=== PATIENT | male | born 1995 | race African-American/Black ===

== ENCOUNTER 2019-08-02 00:56 | Emergency (ER) | payer SELFPAY ==
[~2019-08-02] VITALS: Ht 177.8 cm; Wt 84.8 kg
[2019-08-02 03:36] VITALS: BP 125/80
[2019-08-02] MEDS ORDERED: HYDROcodone-ACET 10/325MG TAB PO ONE (04:15)
[2019-08-02] MEDS ORDERED: IBUPROFEN 800 MG TAB PO ONE (04:15)
== END 2019-08-02 04:24 | disposition home or self-care (01) ==
LOC: ER 00:56
DX: S92.415A Nondisplaced fracture of proximal phalanx of left great toe, initial encounter for closed fracture (principal); W21.01XA Struck by football, initial encounter; Y93.61 Activity, american tackle football; Y92.89 Other specified places as the place of occurrence of the external cause; Y99.8 Other external cause status
CPT/HCPCS: 73630

== ENCOUNTER 2023-10-24 00:04 | Emergency (ER) | payer MEDICAID ==
[~2023-10-24] VITALS: Ht 180.3 cm; Wt 100.0 kg
[2023-10-24 00:20] VITALS: BP 146/85; PULSE 96; RESP 20; O2SAT 96
[2023-10-24] MEDS ORDERED: IBUP-1456 PO (02:03)
== END 2023-10-24 03:44 | disposition home or self-care (01) ==
LOC: ER 00:04
DX: S62.366A Nondisplaced fracture of neck of fifth metacarpal bone, right hand, initial encounter for closed fracture (principal); W26.8XXA Contact with other sharp object(s), not elsewhere classified, initial encounter; Y93.89 Activity, other specified; Y92.89 Other specified places as the place of occurrence of the external cause; Y99.8 Other external cause status
CPT/HCPCS: 29125; 73130

== ENCOUNTER 2024-06-15 07:36 | Inpatient (IN) | payer SELFPAY ==
[~2024-06-15] VITALS: Ht 180.3 cm; Wt 109.3 kg
[~2024-06-15 07:36] MED LIST: IBUP-1456 PO
[2024-06-15 07:56] VITALS: PULSE 91; RESP 16; O2SAT 97
[2024-06-15] MEDS: ONDANSETRON HCL 4 MG/2 ML VIAL IV ONE (08:03)
[2024-06-15] MEDS: HYDROmorphone HCL 2 MG/ML VL/or syr IV ONE (08:04)
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
[2024-06-15 08:16] LABS: Basophils # (auto) 0 10 ^3/uL (0-0.2); Eosinophils # (auto) 0 10 ^3/uL (0-0.8); Hemoglobin 13.4 g/dL (13.5-17.5); Lymphocytes # (auto) 1.3 10 ^3/uL (0.4-5.4); Red Cell Distribution Width 15.3 % (11.8-14.3)
[2024-06-15 08:18] LABS: Basophils % (auto) 0.2 % (0.0-2.0); Hematocrit 42.5 % (41.0-53.0); Lymphocytes % (auto) 8.4 % (10.0-50.0); Mean Corpuscular Hemoglobin 22.3 pg (28.0-32.0); Mean Corpuscular Hgb Conc. 31.5 g/dL (32.0-36.0); Mean Corpuscular Volume 70.7 fL (80.0-100.0); Monocytes # (auto) 1.1 10 ^3/uL (0-1.3); Monocytes % (auto) 7.1 % (0.0-12.0); Neutrophils % (auto) 84.3 % (37.0-80.0); Platelet Count (auto) 275 10^3/uL (140-450); White Blood Cell 15.4 10^3/uL (4.4-10.8)
[2024-06-15] MEDS: IOHEXOL 300 MG/ML 100ML BOTTLE IJ ONE (08:26)
[2024-06-15 08:32] LABS: INR 1.05 (0.9-1.15); Partial Thromboplastin Time 24.9 SEC (24.5-34.5); Prothrombin Time 11.1 sec (9.3-11.8)
[2024-06-15 08:48] LABS: Alanine Aminotransferase 50 U/L (7-40); Albumin 4.8 g/dL (3.2-4.8); Alkaline Phosphatase 75 U/L (46-116); Anion Gap 9 (5-15); Aspartate Aminotransferase 48 U/L (13-40); BUN/Creatinine Ratio 8.6 (10.0-20.0); Bilirubin, Total 0.3 mg/dL (0.2-1.0); Blood Urea Nitrogen 11 mg/dL (9-23); Calcium 9.7 mg/dL (8.7-10.4); Carbon Dioxide 24 mmol/L (20-31); Chloride 101 mmol/L (98-107); Glucose 127 mg/dL (74-106); Magnesium 1.9 mg/dL (1.6-2.6); Potassium 3.5 mmol/L (3.5-5.1); Sodium 134 mmol/L (136-145); Total Protein 8.2 g/dL (5.7-8.2)
[2024-06-15] MEDS: SODIUM CHLORIDE 0.9% 500 ML IVB ONE (09:05)
[2024-06-15] MEDS: SODIUM CHLORIDE 0.9% 1,000 ML IV ONE ×2 (09:05→09:10)
[2024-06-15] MEDS: METOCLOPRAMIDE HCL 5MG/ml INJ 2ml VIAL IV ONE (09:09)
[2024-06-15] MEDS: KETOROLAC TROMETH 30 MG/ML 1ML VIAL IV ONE (09:10)
[2024-06-15 09:17] LABS: Lipase 26 U/L (12-53)
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
[2024-06-15 12:18] LABS: Urine Bacteria None Seen /hpf (None Seen)
[2024-06-15 12:34] LABS: Urine Blood 1+ /uL (Negative); Urine Clarity Clear (Clear); Urine Color Light-Yellow (Yellow); Urine Protein, UAD Negative (Negative); Urine Specific Gravity 1.038 (1.001-1.035); Urine Urobilinogen Normal (Negative); Urine WBC 1 /hpf (0 - 3)
[2024-06-15 13:12] LABS: Amphetamine Screen, Urine Neg (NEGATIVE)
[2024-06-15 13:13] LABS: Barbiturate Scree,Urine Neg (NEGATIVE); Benzodiazephine Screen, Urine Neg (NEGATIVE); Cocaine Screen, Urine Neg (NEGATIVE); Opiate Scree,Urine Neg (NEGATIVE)
[2024-06-15 13:14] LABS: Cannabinoid Screen, Urine Neg (NEGATIVE); Phencyclidine Screen, Urine Neg (NEGATIVE)
[2024-06-15] MEDS ORDERED: ACETAMINOPHEN 325 MG TAB PO PRN (14:00)
[2024-06-15] MEDS ORDERED: ONDANSETRON HCL 4 MG/2 ML VIAL IV PRN (14:00)
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
[2024-06-15] MEDS: SODIUM CHLOR 0.9% PF (SALINE LOCK) 10ML VIAL/SYR IV SCH (14:22)
[2024-06-15] MEDS: MORPHINE SULFATE INJ 2 MG/ml SYRG IV PRN (15:23)
[2024-06-15 15:30] VITALS: PULSE 64; RESP 16; O2SAT 100
[2024-06-15 16:07] VITALS: BP 121/74; PULSE 64; RESP 16; TEMP 98.6; O2SAT 100
[2024-06-15 17:00] VITALS: BP 129/65; PULSE 62; RESP 14; TEMP 97.8; O2SAT 96
--- NOTE | 2024-06-15 17:53 | ECG ---
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
[2024-06-15 21:00] VITALS: BP 125/63; PULSE 85; RESP 18; TEMP 98.4; O2SAT 100
[2024-06-15] MEDS: HYDROcodone-ACET 5/325MG TAB PO PRN (23:25)
[2024-06-16 01:00] VITALS: BP 120/63; PULSE 84; RESP 19; TEMP 98.5; O2SAT 96
[2024-06-16 05:00] VITALS: BP 130/62; PULSE 84; RESP 19; TEMP 98.8; O2SAT 95
[2024-06-16] MEDS: MORPHINE SULFATE INJ 2 MG/ml SYRG IV PRN (05:35)
[2024-06-16 07:54] LABS: Basophils # (auto) 0 10 ^3/uL (0-0.2); Eosinophils # (auto) 0 10 ^3/uL (0-0.8); Monocytes # (auto) 0.5 10 ^3/uL (0-1.3); Red Cell Distribution Width 15.1 % (11.8-14.3)
[2024-06-16 07:57] LABS: Basophils % (auto) 0.4 % (0.0-2.0); Eosinophils % (auto) 0.7 % (0.0-7.0); Hematocrit 33.6 % (41.0-53.0); Hemoglobin 10.9 g/dL (13.5-17.5); Lymphocytes # (auto) 1.4 10 ^3/uL (0.4-5.4); Lymphocytes % (auto) 21.5 % (10.0-50.0); Mean Corpuscular Hgb Conc. 32.4 g/dL (32.0-36.0); Mean Corpuscular Volume 71.1 fL (80.0-100.0); Neutrophils # (auto) 4.7 10 ^3/uL (1.6-8.6); Neutrophils % (auto) 69.4 % (37.0-80.0); Nucleated Red Blood Cells % 0.1 %; Platelet Count (auto) 188 10^3/uL (140-450); Red Blood Cells 4.73 10^6/uL (4.5-5.90); White Blood Cell 6.7 10^3/uL (4.4-10.8)
[2024-06-16 08:06] LABS: Alanine Aminotransferase 41 U/L (7-40); Albumin 3.7 g/dL (3.2-4.8); Alkaline Phosphatase 57 U/L (46-116); Anion Gap 4 (5-15); Aspartate Aminotransferase 71 U/L (13-40); Bilirubin, Total 0.9 mg/dL (0.2-1.0); Blood Urea Nitrogen 8 mg/dL (9-23); Calcium 9.1 mg/dL (8.7-10.4); Carbon Dioxide 27 mmol/L (20-31); Chloride 105 mmol/L (98-107); Glucose 108 mg/dL (74-106); Sodium 136 mmol/L (136-145); Total Protein 6.4 g/dL (5.7-8.2)
[2024-06-16 08:40] VITALS: BP 127/55; PULSE 76; RESP 18; TEMP 98.9; O2SAT 99
[2024-06-16 13:00] VITALS: BP 123/55; PULSE 76; RESP 19; TEMP 98.9; O2SAT 96
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
[2024-06-16 17:02] VITALS: BP 109/47; PULSE 90; RESP 18; TEMP 99.3; O2SAT 96
[2024-06-16] MEDS: FAMOTIDINE 20 MG TAB PO SCH (22:02)
[2024-06-17 05:00] VITALS: BP 130/76; PULSE 87; RESP 18; TEMP 97.9; O2SAT 99
--- NOTE | 2024-06-17 07:26 | DVHPN2 ---
Date of Progress Note Date of Progress Note Date of Progress Note: 06/17/24 Date of Admission Date of Admission Date of Admission: Date of Admission: Jun 15, 2024 at 13:47 Overnight Events Overnight events Overnight Events Pt NPO, leann pain on po meds Past Medical History Past Medical History Past Medical History non contributory Past Surgical History Past Surgical History Past Surgical History non contributory Family History Family History Family History: Patient reports no known family medical history. Allergies: Uncoded Allergies: PENICILLIN (Allergy, Unknown, 08/06/15) Home Meds Active Scripts Ibuprofen (Ibuprofen) 800 Mg Tab, 1 TAB PO TID PRN, #30 TAB 0 Refills Prov:ABBE RODRIGUEZ 10/24/23 Current Medications Current Medications Medications (Trade) Dose Ordered Sig/Yadira Route PRN Reason Start Time Stop Time Status Last Admin Enoxaparin Sodium (Lovenox) 40 mg DAILY SC 06/16/24 17:00 Famotidine (Pepcid Tablet) 20 mg Q12HR PO 06/16/24 22:00 06/16/24 22:02 Physical Examination General Examination: Last Vital sign Vital Signs Date Time Temp Pulse Resp B/P (MAP) Pulse Ox O2 Delivery O2 Flow Rate FiO2 06/17/24 05:00 97.9 87 18 130/76 (94) 99 97.9 06/16/24 20:00 Room Air* 0 21 General: General: No apparent distress, appears comfortable. Cooperative. HEENT: NCAT Extremities: Right thigh, moderate swelling, NVI right LE, skin intact, nl pulses distally Skin: intact Neurological Examination: Neurological Examination: Mental Status: Cranial Nerves: Motor Examination: Reflexes: Sensory: Coordination: Gait: NVI Labs: Labs: Laboratory Tests Test 06/15/24 07:40 06/15/24 11:32 06/16/24 07:12 Range/Units White Blood Count 15.4 H 6.7 # 4.4-10.8 10^3/uL Red Blood Count 6.00 H 4.73 4.5-5.90 10^6/uL Hemoglobin 13.4 L 10.9 #L 13.5-17.5 g/dL Hematocrit 42.5 33.6 #L 41.0-53.0 % Mean Corpuscular Volume 70.7 L 71.1 L 80.0-100.0 fL Mean Corpuscular Hemoglobin 22.3 L 23.0 L 28.0-32.0 pg Mean Corpuscular Hemoglobin Concent 31.5 L 32.4 32.0-36.0 g/dL Red Cell Distribution Width 15.3 H 15.1 H 11.8-14.3 % Platelet Count 275 188 140-450 10^3/uL Mean Platelet Volume 7.8 7.7 6.9-10.8 fL Neutrophils (%) (Auto) 84.3 H 69.4 37.0-80.0 % Lymphocytes (%) (Auto) 8.4 L 21.5 10.0-50.0 % Monocytes (%) (Auto) 7.1 8.0 0.0-12.0 % Eosinophils (%) (Auto) 0.0 0.7 0.0-7.0 % Basophils (%) (Auto) 0.2 0.4 0.0-2.0 % Neutrophils # (Auto) 13.0 H 4.7 1.6-8.6 10 ^3/uL Lymphocytes # (Auto) 1.3 1.4 0.4-5.4 10 ^3/uL Monocytes # (Auto) 1.1 0.5 0-1.3 10 ^3/uL Eosinophils # (Auto) 0 0 0-0.8 10 ^3/uL Basophils # (Auto) 0 0 0-0.2 10 ^3/uL Nucleated Red Blood Cells 0.0 0.1 % Prothrombin Time 11.1 9.3-11.8 sec Prothrombin Time INR 1.05 0.9-1.15 Activated Partial Thromboplast Time 24.9 24.5-34.5 SEC Sodium Level 134 L 136 136-145 mmol/L Potassium Level 3.5 4.0 3.5-5.1 mmol/L Chloride Level 101 105 98-107 mmol/L Carbon Dioxide Level 24 27 20-31 mmol/L Anion Gap 9 4 L 5-15 Blood Urea Nitrogen 11 8 L 9-23 mg/dL Creatinine 1.28 1.14 0.700-1.30 mg/dL Glomerular Filtration Rate Calc 78 90 >90 mL/min BUN/Creatinine Ratio 8.6 L 7.0 L 10.0-20.0 Serum Glucose 127 H 108 H 74-106 mg/dL Calcium Level 9.7 9.1 8.7-10.4 mg/dL Magnesium Level 1.9 1.6-2.6 mg/dL Total Bilirubin 0.3 0.9 0.2-1.0 mg/dL Aspartate Amino Transferase (AST) 48 H 71 H 13-40 U/L Alanine Aminotransferase (ALT) 50 H 41 H 7-40 U/L Alkaline Phosphatase 75 57 46-116 U/L Total Protein 8.2 6.4 5.7-8.2 g/dL Albumin 4.8 3.7 3.2-4.8 g/dL Lipase 26 12-53 U/L Plasma/Serum Blood Alcohol 17.3 H <10 mg/dL Urine Color Light-yellow Yellow Urine Clarity Clear Clear Urine pH 6.0 5.0-9.0 Urine Specific [place] 1.038 H 1.001-1.035 Urine Protein Negative Negative Urine Ketones Negative Negative Urine Blood 1+ H Negative /uL Urine Nitrite Negative Negative Urine Bilirubin Negative Negative Urine Urobilinogen Normal Negative mg/dL Urine Leukocyte Esterase Negative Negative /uL Urine RBC 5 0 - 3 /hpf Urine WBC 1 0 - 3 /hpf Urine Squamous Epithelial Cells None seen <5 /hpf Urine Bacteria None seen None Seen /hpf Urine Glucose Normal Normal mg/dL Urine Opiates Screen Neg NEGATIVE Urine Fentanyl Screen Neg NEGATIVE Urine Barbiturates Screen Neg NEGATIVE Urine Phencyclidine Screen Neg NEGATIVE Urine Amphetamines Screen Neg NEGATIVE Urine Benzodiazepines Screen Neg NEGATIVE Urine Cocaine Screen Neg NEGATIVE Urine Cannabinoids Screen Neg NEGATIVE Imaging Imagin06/14/24 right femoral shaft fracture, displaced, comminuted Assessment/Plan Assessment/Plan Assessment and Plan:Luis Peterson is a 29 year old male who presents with RIGHT femoral shaft fracture, comminuted, dipslaced 1) preop clearance 2) NPO 3) consent for ORIF right femur fracture Plan discussed with: Patient NATIVIDAD PHAM MD Jun 17, 2024 07:26
[2024-06-17] MEDS ORDERED: ceFAZolin 2 GM/D5W100ml 100 ML IV ONE (07:28)
[2024-06-17] MEDS ORDERED: SUCCINYLCHOLINE CHLORIDE 20 MG/ML 10ML VIAL IV ONE (07:51)
[2024-06-17] MEDS ORDERED: LIDOCAINE 2% JELLY 11ml (GLYDO) ONE (07:51)
[2024-06-17] MEDS ORDERED: fentaNYL CITRATE 100 MCG/2 ML VL ONE ×2 (07:54→08:26)
[2024-06-17] MEDS ORDERED: HYDROmorphone HCL 2 MG/ML VL/or syr ONE (07:54)
[2024-06-17] MEDS ORDERED: MIDAZOLAM HCL 2MG/2ML 2ml VIAL (1mg/ml) ONE (07:55)
[2024-06-17] MEDS ORDERED: DexAMETHasone SOD PHOS 10MG/1ML VIAL INJ ONE (08:26)
[2024-06-17] MEDS ORDERED: ROCURONIUM 10MG/ML 10ML VIAL IV ONE (08:26)
[2024-06-17] MEDS ORDERED: PROPOFOL 10 MG/ML 20 ML IV ONE (08:26)
[2024-06-17] MEDS ORDERED: LIDOCAINE W/ EPINEPHRINE 1% 20ML VIAL ONE (08:34)
[2024-06-17] MEDS ORDERED: SUGAMMADEX 200mg/2ml Vial (100MG/ML) IV ONE (09:21)
[2024-06-17] MEDS ORDERED: BUPIVACAINE W/ EPINEPH 0.5% INJ 50ML MDV IJ ONE (09:24)
[2024-06-17] MEDS ORDERED: KETOROLAC TROMETH 30 MG/ML 1ML VIAL IV ONE (09:30)
[2024-06-17] MEDS ORDERED: MIDAZOLAM HCL 2MG/2ML 2ml VIAL (1mg/ml) IV PRN (09:30)
[2024-06-17] MEDS ORDERED: ONDANSETRON HCL 4 MG/2 ML VIAL IV ONE (09:30)
[2024-06-17] MEDS ORDERED: hydrALAZINE HCL 20 MG/ML VL IV PRN (09:30)
[2024-06-17] MEDS ORDERED: ePHEDrine SULFATE 50 MG/ML AMP IV PRN (09:30)
[2024-06-17] MEDS ORDERED: MORPHINE SULFATE 4 MG/ML SYR/VIAL IV PRN (09:30)
--- NOTE | 2024-06-17 09:42 | DVHOP2 ---
Operative Report - 2 Report Details Date: 06/17/24 Preop Diagnosis: Right midshaft comminuted femur fracture Postop Diagnosis: same Surgeon: Richardson Pham MD Rehab Technician: none Anesthesiologist: Dr Jones Anesthesia: General Drains: none Implant: Arthrex antegrade IM femoral tonya with two proximal interlockinng screws and one static distal interlocking screw Consent: The patient was informed of the risks and benefits of the procedure. These include but are not limited to complications of anesthesia, postoperative infection, incomplete relief of symptoms, recurrence of symptoms, damage to blood vessels, nerves and tendons, deep venous thrombosis, pulmonary embolism and possible need for repeat surgery in the future. Complications: none Estimated Blood Loss: 100cc Fluids: 1 L crystalloid Findings: above Indications for Surgery: Unstable fracture of right proximal femur with requisite bedrest without fixation and comorbidities associated with bedrest Name of Procedure Performed Open reduction internal fixation of right comminuted femur fracture with IM antegrade tonya Procedure Details Procedure Details: Patient brought in the operating room given Ancef 1 g IV piggyback preoperatively general anesthesia without complication placed on the fracture table well-padded perineal post right leg in foot and ankle padded into traction boot hold her left leg and all padded well leg camacho reduction of fracture with longitudinal traction C-arm fluoro taken to show good overall alignment of fracture with gross comminution at the fracture site the junction of mid and distal 3rd of the femur sterile prep and drape of right hip and lower extremity time-out performed confirmation right side correct side after review of operative consent history and physical my initials on right buttock longitudinal incision made 5 cm in length 8 cm proximal to tip of greater trochanter sharp dissection through skin down to the fascia sharp division of the fascia guide pin placed into the tip of greater trochanter into the intramedullary canal good position of pending confirmed in AP and lateral views Reamer used to gain access then reduction device placed down intramedullary canal and across fracture guide pin then placed through reduction device then reaming over guide pin size are up to size 11-1/2 then placement of IM tonya Arthrex 44 by 10 mm C-arm fluoro taken showing good position of tonya good good alignment of fracture proximal interlocking using a locking guides 1 intertroch screw 1 transverse screw the distal interlocking using C-arm to obtain guide for placement of distal interlock screw irrigation or C-arm fluoro taken again showing good alignment and position of hardware interlocking screws irrigation performed excellent hemostasis noted closure deep fascia 0 Vicryl simple interrupted 0 Vicryl suture subcutaneous 2-0 Vicryl suture skin jennifer 4 x 4 paper tape no drain specimens complications. Specimen: none Condition Stable Disposition Still a Patient RICHARDSON PHAM MD Jun 17, 2024 09:42
[2024-06-17 09:44] VITALS: PULSE 81; RESP 13; O2SAT 99
[2024-06-17] MEDS: D5W/SOD CHL 0.45%/KCL 20MEQ 1,000 ML IV SCH (09:45)
[2024-06-17] MEDS: ENOXAPARIN SOD 40 MG/0.4 ML SYRINGE SC SCH (10:00)
[2024-06-17] MEDS: HYDROmorphone HCL 2 MG/ML VL/or syr IV PRN (10:35)
--- NOTE | 2024-06-17 10:40 | DVH ---
C-ARM FLUOROSCOPY: PROCEDURE: ORIF right femur FLUOROSCOPY TIME: 164.3 sec
--- NOTE | 2024-06-17 10:40 | DVH ---
C-ARM FLUOROSCOPY: PROCEDURE: ORIF right femur FLUOROSCOPY TIME: 164.3 sec
[2024-06-17 10:59] VITALS: BP 132/83; PULSE 78; RESP 14; TEMP 97.8; O2SAT 90
[2024-06-17] MEDS ORDERED: PHENYLEPHRINE HCL 10 MG/ML VL IV ONE (12:10)
[2024-06-17 13:00] VITALS: BP 153/76; PULSE 91; RESP 18; TEMP 97.8; O2SAT 96
[2024-06-17] MEDS: diphenhdrAMINE HCL 50 MG/1 ML VL IV PRN (13:59)
[2024-06-17] MEDS: ceFAZolin 1GM/50ML 50 ML IV SCH (14:01)
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
[2024-06-17 17:00] VITALS: BP 155/79; PULSE 90; RESP 16; TEMP 97.6; O2SAT 97
[2024-06-17 22:00] VITALS: BP 156/78; PULSE 88; RESP 19; TEMP 98.5; O2SAT 97
[2024-06-18 01:00] VITALS: BP 147/85; PULSE 74; RESP 19; TEMP 97.7; O2SAT 95
[2024-06-18 05:00] VITALS: BP 134/72; PULSE 73; RESP 19; TEMP 98.3; O2SAT 97
[2024-06-18 06:03] LABS: Basophils # (auto) 0 10 ^3/uL (0-0.2); Eosinophils # (auto) 0 10 ^3/uL (0-0.8); Mean Corpuscular Hgb Conc. 32.3 g/dL (32.0-36.0); Mean Corpuscular Volume 70.1 fL (80.0-100.0)
[2024-06-18 06:05] LABS: Basophils % (auto) 0.1 % (0.0-2.0); Hematocrit 29.4 % (41.0-53.0); Hemoglobin 9.5 g/dL (13.5-17.5); Lymphocytes # (auto) 1.5 10 ^3/uL (0.4-5.4); Lymphocytes % (auto) 13.8 % (10.0-50.0); Mean Corpuscular Hemoglobin 22.7 pg (28.0-32.0); Monocytes % (auto) 9.1 % (0.0-12.0); Neutrophils # (auto) 8.2 10 ^3/uL (1.6-8.6); Platelet Count (auto) 212 10^3/uL (140-450); Red Blood Cells 4.19 10^6/uL (4.5-5.90); Red Cell Distribution Width 14.8 % (11.8-14.3); White Blood Cell 10.6 10^3/uL (4.4-10.8)
[2024-06-18 09:00] VITALS: BP 142/94; PULSE 85; RESP 16; TEMP 98.2; O2SAT 98
[2024-06-18 13:00] VITALS: BP 138/91; PULSE 78; RESP 18; TEMP 98.6; O2SAT 97
[2024-06-18 17:00] VITALS: BP 148/72; PULSE 72; RESP 18; TEMP 98.8; O2SAT 98
[2024-06-18 19:38] LABS: Chloride 99 mmol/L (98-107); Potassium 3.8 mmol/L (3.5-5.1); Sodium 136 mmol/L (136-145)
[2024-06-18 19:39] LABS: Anion Gap 8 (5-15); Carbon Dioxide 29 mmol/L (20-31)
[2024-06-18 19:40] LABS: Calcium 9.3 mg/dL (8.7-10.4)
[2024-06-18 19:44] LABS: Glucose 148 mg/dL (74-106)
[2024-06-18 19:45] LABS: BUN/Creatinine Ratio 7.1 (10.0-20.0); Blood Urea Nitrogen 8 mg/dL (9-23); Magnesium 1.9 mg/dL (1.6-2.6)
[2024-06-18 22:00] VITALS: BP 148/66; PULSE 94; RESP 17; TEMP 98.3; O2SAT 98
[2024-06-18] MEDS: KETOROLAC TROMETH 30 MG/ML 1ML VIAL IV ONE (23:19)
[2024-06-19 05:00] VITALS: BP 123/61; PULSE 77; RESP 17; TEMP 98.2; O2SAT 98
[2024-06-19 08:59] VITALS: BP 128/66; PULSE 83; RESP 16; TEMP 98.4; O2SAT 100
[2024-06-19] MEDS: OXYCODONE W/ ACETAMINOPHEN 5/325MG TABLET PO PRN (12:50)
[2024-06-19 13:24] VITALS: BP 149/71; PULSE 98; RESP 18; TEMP 98.4; O2SAT 100
--- NOTE | 2024-06-19 13:33 | DVHPN2 ---
Progress Note - Dictate Date Seen: Jun 19, 2024 Medical Necessity Reason Pt with a Central, PICC or Fol: No Subjective Patient was lying comfortably in bed during my evaluation reports some postoperative hip pain as well as muscle spasms that are limiting his ambulation and was currently unable to move his leg due to muscle spasms. Patient reports that he had just gotten up and walked with physical therapy only took a couple of steps down the [place] and back to his room which he believes is what is causing his current muscle spasms. Patient is otherwise feeling well denying any other complaint or concern during my evaluation. vital signs Vital Sign Date Time Temp Pulse Resp B/P (MAP) Pulse Ox O2 Delivery O2 Flow Rate FiO2 06/19/24 13:24 98.4 98 18 149/71 (97) 100 98.4 06/19/24 08:00 Room Air* 0 21 Total Intake and Output 06/18/24 06/18/24 06/19/24 15:00 23:00 07:00 Intake Total 1000 ml 450 ml Output Total 400 ml 700 ml Balance 600 ml -250 ml medications Current Medications Medications Dose Ordered Sig/Yadira Route Start Time Stop Time Status Last Admin Dose Admin Sodium Chloride 10 ml Q8HR IV 06/15/24 14:00 06/18/24 23:05 10 ML Acetaminophen/ Hydrocodone Bitart 1 tab Q4HP PRN PO 06/15/24 14:00 06/19/24 08:59 1 TAB Ondansetron HCl 4 mg Q4HP PRN IV 06/15/24 14:00 Docusate Sodium 100 mg BIDPRN PRN PO 06/15/24 14:00 Acetaminophen 650 mg Q6HP PRN PO 06/15/24 14:00 Enoxaparin Sodium 40 mg DAILY SC 06/16/24 17:00 06/19/24 08:59 40 MG Famotidine 20 mg Q12HR PO 06/16/24 22:00 06/19/24 08:59 20 MG Potassium Chloride/Dextrose/ Sod Cl 1,000 ml @ 150 mls/hr Q6H40M IV 06/17/24 09:45 06/19/24 08:58 150 MLS/HR Diphenhydramine HCl 25 mg Q6HP PRN IV 06/17/24 13:15 06/19/24 12:54 25 MG Oxycodone/ Acetaminophen 1 tab Q4HP PRN PO 06/19/24 11:45 06/19/24 12:50 1 TAB objective A&O x4 in no acute distress Hip range of motion grossly limited with pain on movement Dressings clean, dry, and intact but were causing patient discomfort due to the MediPort tape and replaced his dressing with Aquacel dressings No distal edema or calf tenderness to palpation Neurovascularly intact with cap refill less than 2 seconds laboratory and microbiology Laboratory Tests 06/18/24 19:00 06/18/24 05:27 Test 06/18/24 19:00 Range/Units Serum Glucose 148 H 74-106 mg/dL Assessment/Plan Continue current management as well as pain control and physical therapy and we will put in orders for cyclobenzaprine muscle relaxer 3 times a day as needed for muscle spasms. Advised patient to remain partially weight-bearing for the next two weeks and to follow up with our office in 10-14 days for his 1st postoperative evaluation. Recommend patient be considered for discharge home once muscle spasms have resolved if not may consider transfer to a group home facility for further assistance with his rehabilitation during the acute postoperative phase of his recovery. He understood and agreed. Plan discussed with: Patient JORDYN MISHRA Jun 19, 2024 13:33
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
[2024-06-19] MEDS: CYCLOBENZAPRINE HCL 10 MG TAB PO SCH (15:17)
[2024-06-19 16:53] VITALS: BP 110/69; PULSE 96; RESP 17; TEMP 98.3; O2SAT 99
[2024-06-19 21:00] VITALS: BP 140/64; PULSE 84; RESP 22; TEMP 98; O2SAT 100
[2024-06-20] VITALS (7 sets, daily range): BP systolic 124–137; BP diastolic 62–82; PULSE 48–91; RESP 18–20; TEMP 97.2–98.8; O2SAT 96–100
--- NOTE | 2024-06-20 12:06 | DVH ---
Right lower extremity venous Doppler INDICATION: Lower extremity swelling. Rule out deep vein thrombosis. TECHNIQUE: Duplex venous sonography was performed with real-time and flow sensitive images submitted for evaluation. FINDINGS: Normal phasic venous flow. Veins are fully compressible. No filling defects. IMPRESSION: 1. No evidence of deep vein thrombosis.
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
--- NOTE | 2024-06-20 15:57 | DVHPN2 ---
Progress Note - Dictate Date Seen: Jun 20, 2024 Medical Necessity Reason Pt with a Central, PICC or Fol: No Subjective Patient was sitting up comfortably in the chair at bedside during my evaluation and continues to report some postoperative hip pain as well as muscle spasms that are limiting his ambulation. Patient reports that he had just gotten up and walked with physical therapy and was able to take a few steps down the [place] and back to his room. Patient is otherwise feeling well denying any other complaint or concern during my evaluation. vital signs Vital Sign Date Time Temp Pulse Resp B/P (MAP) Pulse Ox O2 Delivery O2 Flow Rate FiO2 06/20/24 11:57 98.2 48 18 128/71 (90) 96 98.2 06/20/24 08:10 Room Air* 0 21 Total Intake and Output 06/19/24 06/19/24 06/20/24 15:00 23:00 07:00 Intake Total 2300 ml Output Total 800 ml 1400 ml Balance 1500 ml -1400 ml medications Current Medications Medications Dose Ordered Sig/Yadira Route Start Time Stop Time Status Last Admin Dose Admin Sodium Chloride 10 ml Q8HR IV 06/15/24 14:00 06/20/24 12:45 10 ML Acetaminophen/ Hydrocodone Bitart 1 tab Q4HP PRN PO 06/15/24 14:00 06/20/24 11:24 1 TAB Ondansetron HCl 4 mg Q4HP PRN IV 06/15/24 14:00 Docusate Sodium 100 mg BIDPRN PRN PO 06/15/24 14:00 Acetaminophen 650 mg Q6HP PRN PO 06/15/24 14:00 Enoxaparin Sodium 40 mg DAILY SC 06/16/24 17:00 06/20/24 09:46 40 MG Famotidine 20 mg Q12HR PO 06/16/24 22:00 06/20/24 09:46 20 MG Potassium Chloride/Dextrose/ Sod Cl 1,000 ml @ 150 mls/hr Q6H40M IV 06/17/24 09:45 06/20/24 12:45 150 MLS/HR Diphenhydramine HCl 25 mg Q6HP PRN IV 06/17/24 13:15 06/20/24 03:19 25 MG Oxycodone/ Acetaminophen 1 tab Q4HP PRN PO 06/19/24 11:45 06/20/24 14:02 1 TAB Cyclobenzaprine HCl 10 mg TID PO 06/19/24 14:00 06/20/24 14:02 10 MG objective A&O x4 in no acute distress Hip range of motion grossly limited with pain on movement Dressings clean, dry, and intact No distal edema or calf tenderness to palpation Neurovascularly intact with cap refill less than 2 seconds laboratory and microbiology Laboratory Tests 06/18/24 19:00 06/18/24 05:27 Test 06/18/24 19:00 Range/Units Serum Glucose 148 H 74-106 mg/dL Assessment/Plan Continue current management as well as pain control and physical therapy. Advised patient to remain partially weight-bearing for the next two weeks and to follow up with our office in 10-14 days for his 1st postoperative evaluation. Patient may be considered for discharge home from an orthopedic standpoint. He understood and agreed. Dietary Evaluation Review Comments: Continue current plan of care Expected Outcomes/Goals: F/U in 3-5 days Plan discussed with: Patient JORDYN MISHRA Jun 20, 2024 15:57
[2024-06-20] MEDS: HYDROcodone-ACET 10/325MG TAB PO PRN (16:35)
[2024-06-21] VITALS (8 sets, daily range): BP systolic 122–146; BP diastolic 60–87; PULSE 82–109; RESP 18–20; TEMP 97.8–98.9; O2SAT 98–100
[2024-06-22] VITALS (7 sets, daily range): BP systolic 114–139; BP diastolic 54–89; PULSE 77–111; RESP 18–20; TEMP 98.1–98.5; O2SAT 94–100
[2024-06-22] MEDS: DOCUSATE SOD 100 MG CAP PO PRN (09:10)
--- NOTE | 2024-06-22 14:10 | DVHPN2 ---
Reviewed: Care Plan Eyes: No Pain, No Vision change, No Conjunctivae inflammation, No Eyelid inflammation, No Other, No Redness ENT: No Ear pain, No Ear discharge, No Nose pain, No Nose discharge, No Nose congestion, No Mouth pain, No Mouth swelling, No Throat pain, No Throat swelling, No Other Cardiovascular: No Chest Pain, No Palpitations, No Orthopnea, No Paroxysmal Noc. Dyspnea, No Edema, No Lt Headedness, No Other Respiratory: No Cough, No Dry, No Shortness of breath, No SOB with excertion, No Wheezing, No Hemoptysis, No Pleuritic Pain, No Sputum, No Other Gastrointestinal: No Nausea, No Vomiting, No Abdominal Pain, No Diarrhea, No Constipation, No Melena, No Hematochezia, No Other Genitourinary: No Dysuria, No Frequency, No Incontinence, No Hematuria, No Retention, No Other Musculoskeletal: No other, No neck pain, No shoulder pain, No arm pain, No back pain, No hand pain; leg pain (right leg); No foot pain Skin: No Rash, No Lesions, No Jaundice, No Bruising, No Other Objective Vitals Vital Signs Date Time Temp Pulse Resp B/P (MAP) Pulse Ox O2 Delivery O2 Flow Rate FiO2 06/22/24 12:32 98.1 98 18 137/89 (105) 95 98.1 06/22/24 08:13 Room Air* 0 21 Intake/Output Intake and Output 06/22/24 07:00 Intake Total 4160 ml Output Total 4600 ml Balance -440 ml Intake Oral 2460 ml IV Total 1700 ml Output Urine Total 4600 ml Medications Current Medications Medications Dose Ordered Sig/Yadira Route Start Time Stop Time Status Last Admin Dose Admin Sodium Chloride 10 ml Q8HR IV 06/15/24 14:00 06/22/24 05:04 10 ML Acetaminophen/ Hydrocodone Bitart 1 tab Q4HP PRN PO 06/15/24 14:00 06/21/24 23:32 1 TAB Ondansetron HCl 4 mg Q4HP PRN IV 06/15/24 14:00 Docusate Sodium 100 mg BIDPRN PRN PO 06/15/24 14:00 06/22/24 09:10 100 MG Acetaminophen 650 mg Q6HP PRN PO 06/15/24 14:00 Enoxaparin Sodium 40 mg DAILY SC 06/16/24 17:00 06/22/24 09:00 40 MG Famotidine 20 mg Q12HR PO 06/16/24 22:00 06/22/24 09:00 20 MG Potassium Chloride/Dextrose/ Sod Cl 1,000 ml @ 150 mls/hr Q6H40M IV 06/17/24 09:45 06/22/24 03:28 150 MLS/HR Diphenhydramine HCl 25 mg Q6HP PRN IV 06/17/24 13:15 06/21/24 23:35 25 MG Oxycodone/ Acetaminophen 1 tab Q4HP PRN PO 06/19/24 11:45 Hold 06/20/24 14:02 1 TAB Cyclobenzaprine HCl 10 mg TID PO 06/19/24 14:00 06/22/24 05:00 10 MG Acetaminophen/ Hydrocodone Bitart 1 tab Q4HR PRN PO 06/20/24 15:45 06/22/24 14:04 1 TAB Laboratory Results Laboratory Tests 06/18/24 05:27 06/18/24 19:00 Urinalysis Test 06/15/24 11:32 Urine Color Light-yellow (Yellow) Urine Clarity Clear (Clear) Urine pH 6.0 (5.0-9.0) Urine Specific [place] 1.038 (1.001-1.035) Urine Protein Negative (Negative) Urine Ketones Negative (Negative) Urine Blood 1+ /uL (Negative) H Urine Nitrite Negative (Negative) Urine Bilirubin Negative (Negative) Urine Urobilinogen Normal mg/dL (Negative) Urine Leukocyte Esterase Negative /uL (Negative) Urine RBC 5 /hpf (0 - 3) Urine WBC 1 /hpf (0 - 3) Urine Squamous Epithelial Cells None seen /hpf (<5) Urine Bacteria None seen /hpf (None Seen) Urine Glucose Normal mg/dL (Normal) RIOS PEDROZA MD Jun 22, 2024 14:10
[2024-06-22] MEDS ORDERED: HYDR-4902 PO (14:22)
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
[2024-06-22] MEDS: POLYETHYLENE GLYCOL 17 GM PWDR PO ONE (16:43)
== END 2024-06-22 17:56 | disposition home or self-care (01) | DRG 482 ==
LOC: ER 07:36 → OVERFLOW 13:47 → WEST WING 15:03
PROVIDERS: ADMIT Internal Medicine; ATTEND Internal Medicine
PROC: 0QS806Z Reposition Right Femoral Shaft with Intramedullary Internal Fixation Device, Open Approach (ICD-10-PCS; principal; 2024-06-17 07:54)
DX: S72.351A Displaced comminuted fracture of shaft of right femur, initial encounter for closed fracture (principal); D72.829 Elevated white blood cell count, unspecified; M62.838 Other muscle spasm; S00.03XA Contusion of scalp, initial encounter; V43.52XA Car driver injured in collision with other type car in traffic accident, initial encounter; Y93.89 Activity, other specified; Y99.8 Other external cause status; Z88.0 Allergy status to penicillin; Y92.410 Unspecified street and highway as the place of occurrence of the external cause
CPT/HCPCS: 36415; 70450; 71045; 71250; 72125; 72193; 73701; 74176; 76000; 80048; 80053; 80307; 80320; 81001; 83690; 83735; 85025; 85610; 85730; 86850; 86900; 86901; 93005; 93970; 97110; 97116; 97163; 97530; 99291; A4565; C1713; C1769; G0378; J0330; J1100; J1885; J2250; J2405; J2704

== ENCOUNTER 2024-07-02 15:40 | Emergency (ER) | payer SELFPAY ==
[~2024-07-02] VITALS: Ht 188 cm; Wt 100.0 kg
[~2024-07-02 15:40] MED LIST changes: +HYDR-4902 PO
--- NOTE | 2024-07-02 17:25 | DVH ---
CLINICAL INDICATION: fall TECHNIQUE: 3 radiographic views of the right knee were obtained. Comparison: XY R FEMUR XRAY on DOS: 06/17/24, XY R HAND 3 VIEW XRAY on DOS: 10/24/23 FINDINGS/IMPRESSION: There is no evidence of acute fracture or dislocation. Partially visualized intramedullary tonya and sc rew fixation of the distal femur. The visualized joint space is well maintained. The alignment is anatomical. There is no radiopaque foreign body. Skin jennifer are noted over the lateral distal thigh.
--- NOTE | 2024-07-02 17:30 | DVH ---
CLINICAL INDICATION: fall TECHNIQUE: 5 radiographic views of the right femur were obtained. Comparison: XY R FEMUR XRAY on DOS: 06/17/[address] right femur 06/15/2024 FINDINGS/IMPRESSION: Comminuted displaced fracture of the proximal femoral diaphysis status post intramedullary tonya and sc rew fixation with the bony fragments in better anatomic alignment. Skin jennifer are noted over the l ateral hip and lateral proximal and lower thighs consistent with recent surgery. No dislocation.
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
[2024-07-02 18:07] VITALS: PULSE 90; RESP 16; O2SAT 98
[2024-07-02 18:14] VITALS: BP 116/63; PULSE 90; RESP 16; TEMP 98.5; O2SAT 98
== END 2024-07-02 18:27 | disposition home or self-care (01) ==
LOC: EDBD 15:40 → ER 15:40
DX: S72.8X1D Other fracture of right femur, subsequent encounter for closed fracture with routine healing (principal); Z79.899 Other long term (current) drug therapy; Z88.0 Allergy status to penicillin; X58.XXXD Exposure to other specified factors, subsequent encounter
CPT/HCPCS: 73562

== ENCOUNTER 2024-08-05 15:53 | Emergency (ER) | payer SELFPAY ==
[~2024-08-05] VITALS: Ht 180.3 cm; Wt 99.6 kg
[2024-08-05 16:20] VITALS: BP 130/83; PULSE 77; RESP 16; O2SAT 98
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
== END 2024-08-05 17:01 | disposition home or self-care (01) ==
LOC: ER 15:53
DX: S71.011D Laceration without foreign body, right hip, subsequent encounter (principal); Z98.890 Other specified postprocedural states; X58.XXXD Exposure to other specified factors, subsequent encounter

== ENCOUNTER 2024-09-09 22:54 | Emergency (ER) | payer SELFPAY ==
[~2024-09-09] VITALS: Ht 180.3 cm; Wt 101.6 kg
--- NOTE | 2024-09-10 00:21 | DVH ---
Right lower extremity venous duplex Clinical History: RIGHT LEG PAIN Comparison: US BILAT LOWER DVT on DOS: 06/20/24 Technique: Duplex Doppler evaluation of the deep venous system of the right lower extremity from the common femo ral vein to the popliteal vein including color Doppler and spectral/pulsed waveform analysis was perf ormed. Findings: The common femoral vein demonstrates appropriate compressibility and waveform variability. There is compressibility/patency of the great saphenous vein at the proximal thigh. The femoral vein demonstrates appropriate compressibility and waveform variability. The deep femoral vein demonstrates appropriate compressibility and waveform variability. The popliteal vein demonstrates appropriate compressibility and waveform variability. There is normal compressibility at the tibioperoneal trunk. Impression: No right femoropopliteal venous thrombosis. If clinical concern/symptoms persist or worsen, short-interval follow-up study is suggested.
[2024-09-10] MEDS: ONDANSETRON ODT 4 MG TAB PO ONE (01:32)
[2024-09-10] MEDS: HYDROcodone-ACET 10/325MG TAB PO ONE (01:32)
[2024-09-10 01:35] VITALS: BP 139/90; PULSE 16; RESP 98; TEMP 98; O2SAT 88
[2024-09-10] MEDS ORDERED: ACE3T PO (01:44)
--- NOTE | 2024-09-10 01:45 | ED.PDOC ---
Musculoskeletal HPI Comments 29 YEAR OLD MALE PRESENTS TO ER WITH COMPLAINTS OF RIGHT HIP PAIN X 2 MONTHS. PATIENT WITH PMH SIGNIFICANT FOR RIGHT HIP FX WITH ORIF SURGERY IN MAY 2024 REPORTS HE HAS BEEN EXPERIENCING WORSENING RIGHT HIP PAIN X 2 MONTHS. DENIES ANY TRAUMA/FALLS TO CAUSE WORSENING RIGHT HIP PAIN. HE RATES HIS CURRENT PAIN A 9/10 WITH RADIATION TOWARDS RIGHT KNEE. NOTES HE HAS BEEN TAKING IBUPROFEN AND NORCO FOR HIS PAIN WITHOUT RELIEF AND NOTES HE DOES HAVE CHRONIC NUMBNESS/TINGLING DOWN RIGHT LEG. REPORTS HIS ORTHOPEDIC DOCTOR IS DR. HUYNH BUT HAS NOT FOLLOWED-UP WITH HIM DIRECTED. DENIES FEVER, BODY ACHES, CHILLS, SHORTNESS OF BREATH, CALF PAIN OR ANY FURTHER SYMPTOMS/COMPLAINTS Chief Complaint: Lower Extremity Time Seen by MD: 23:28 Primary Care Provider: UNKNOWN Reviewed Notes: Nurses Notes, Medications, Allergies Allergies: Uncoded Allergies: PENICILLIN (Allergy, Unknown, 08/06/15) Home Meds Active Scripts Acetaminophen W/ Codeine (Tylenol W/Cod #3) 1 Tab Tb, 1 TAB PO Q6HPRN, #10 TAB 0 Refills Prov:ABBE RODRIGUEZ 09/10/24 Hydrocodone-Acetaminophen (Hydrocodone Bitartrate/AC 5-325 mg) 1 Tab Tab, 1 TAB PO Q4HP PRN, #20 TAB Prov:RIOS PEDROZA MD 06/22/24 Ibuprofen (Ibuprofen) 800 Mg Tab, 1 TAB PO TID PRN, #30 TAB 0 Refills Prov:ABBE RODRIGUEZ 10/24/23 Information Source: Patient Mode of Arrival: Wheelchair Past Medical History Past Medical History (Other): RIGHT HIP FX WITH ORIF- MAY 2024 Surgical History (Other): RIGHT HIP ORIF- MAY 2024 Family History Family History: Unknown Social History Smoker: Non-Smoker Alcohol: Occasionally Drugs: Denies Drug Use Lives In: Home Constitutional: denies: chills, diaphoresis, fatigue, fever, malaise, sweats, weakness, others EENTM: denies: blurred vision, double vision, ear bleeding, ear discharge, ear drainage, ear pain, ear ringing, eye pain, eye redness, hearing loss, mouth pain, mouth swelling, nasal discharge, nose bleeding, nose congestion, nose pain, photophobia, tearing, throat pain, throat swelling, voice changes, others Respiratory: denies: cough, hemoptysis, orthopnea, SOB at rest, shortness of breath, SOB with excertion, stridor, wheezing, others Cardiovascular: denies: chest pain, dizzy spells, diaphoresis, Dyspnea on exertion, edema, irregular heart beat, left arm pain, lightheadedness, palpitations, PND, syncope, others Gastrointestinal: denies: abdomen distended, abdominal pain, blood streaked bowels, constipated, diarrhea, dysphagia, difficulty swallowing, hematemesis, melena, nausea, poor appetite, poor fluid intake, rectal bleeding, rectal pain, vomiting, others Genitourinary: denies: burning, dysuria, flank pain, frequency, hematuria, incontinence, penile discharge, penile sore, pain, testicle pain, testicle swelling, urgency, others Neurological: reports: others ( STATED IN HPI) Musculoskeletal: reports: others ( STATED IN HPI) Integumetry: denies: bruises, change in color, change in hair/nails, dryness, laceration, lesions, lumps, rash, wounds, others Allergic/Immunocompromised: denies: Difficulty Healing, Frequent Infections, Hives, Itching, others Hematologic/Lymphatic: denies: anemia, blood clots, easy bleeding, easy bruising, swollen glands, others Endocrine: denies: excessive hunger, excessive sweating, excessive thirst, excessive urination, flushing, intolerance to cold, intolerance to heat, unexplained weight gain, unexplained weight loss, others Psychiatric: denies: anxiety, bipolar disorder, depression, hopeless, panic disorder, schizophrenia, sleepless, suicidal, others Physical Exam General Appearance: No Apparent Distress, Obese HEENT: PERRL/EOMI Neck: Full Range of Motion, Non-Tender, Normal Respiratory: Chest Non-Tender, Lungs Clear, No Accessory Muscle Use, No Respiratory Distress, Normal Breath Sounds Cardiovascular: No Murmur, No Gallop, Regular Rate/Rhythm Breast Exam: Deferred Gastrointestinal: Non Tender, No Pulsatile Mass, Soft Genitalia: Deferred Pelvic: Deferred Rectal: Deferred Extremities: No calf tenderness, Normal capillary refill, Normal range of motion Musculoskeletal : Extremity Location: Hip (TTP TO RIGHT HIP NOTED. SCAR NOTED FROM PREVIOUS RIGHT HIP FULL REPLACEMENT SURGERY. NO FURTHER SKIN CHANGES NOTED. NO INTERNAL ROTATION/SHORTENING TO BILATERAL LIMBS NOTED. PULSES INTACT. PATIENT FAVORS LEFT LEG ON AMBULATION DUE TO PAIN LOCALIZED TO RIGHT HIP. NO OTHER TTP TO RIGHT LOWER EXTREMITY NOTED) Neurologic: Alert, No Motor Deficits, Normal Affect, Normal Mood, No Sensory Deficits Cerebellar Function: Normal Reflexes: Normal Skin: Dry, Normal Color, Warm Peripheral Pulses: 2+ femoral (R), 2+ femoral (L), 2+ dorsalis pedis (R), 2+ dorsalis pedis (L) Lymphatic: No Adenopathy Was a procedure done? Was a procedure done?: No Sedation Sedation?: No Differential Diagnosis EXT Differential Diagnosis: Deep Vein Thrombosis, Dislocation, Neurovascular injury X-Ray, Labs, Meds, VS Vital Signs Date Time Temp Pulse Resp B/P (MAP) Pulse Ox O2 Delivery O2 Flow Rate FiO2 09/10/24 01:35 98.0 16 98 139/90 (106) 88 98.0 09/09/24 23:05 98.0 88 16 139/90 (106) 98 Current Medications Medications (Trade) Dose Ordered Sig/Yadira Route Start Time Stop Time Status Last Admin Acetaminophen/ Hydrocodone Bitart ([place] 10/325MG Tab) 1 tab ONCE ONCE PO 09/10/24 01:30 09/10/24 01:31 DC 09/10/24 01:32 Ondansetron HCl (Zofran Po) 4 mg ONCE ONCE PO 09/10/24 01:30 09/10/24 01:31 DC 09/10/24 01:32 PATIENT: CHRISTOPHER GRANADOS JACCT: [id number]: [id number] : 1995 LOC: ER ROOM / BED: / AGE / SEX: 29 / M ADM STATUS: REG ER SERVICE [id number] ORDERING PHYSICIAN: ABBE RODRIGUEZ PROCEDURE(s): RLDVT - RT Lower DVT REASON: RIGHT LEG PAIN ORDER NUMBER(s): [id number], ACCESSION NUMBER(s): [id number] Right lower extremity venous duplex Clinical History: RIGHT LEG PAIN Comparison: US BILAT LOWER DVT on DOS: 06/20/24 Technique: Duplex Doppler evaluation of the deep venous system of the right lower extremity from the common femoral vein to the popliteal vein including color Doppler and spectral/pulsed waveform analysis was performed. Findings: The common femoral vein demonstrates appropriate compressibility and waveform variability. There is compressibility/patency of the great saphenous vein at the proximal thigh. The femoral vein demonstrates appropriate compressibility and waveform variability. The deep femoral vein demonstrates appropriate compressibility and waveform variability. The popliteal vein demonstrates appropriate compressibility and waveform variability. There is normal compressibility at the tibioperoneal trunk. Impression: No right femoropopliteal venous thrombosis. If clinical concern/symptoms persist or worsen, short-interval follow-up study is suggested. ATED BY: CUCA HEBERT DO DICTATED DATE/TIME: 09/10/2417 SIGNED BY: CUCA HEBERT DO SIGNED DATE/TIME: 09/10/2417 CC: PATIENT: CHRISTOPHER GRANADOS ACCT: [id number] UNIT: [id number] : 1995 LOC: ER ROOM / BED: / AGE / SEX: 29 / M ADM STATUS: REG ER SERVICE [id number] ORDERING PHYSICIAN: ABBE RODRIGUEZ PROCEDURE(s): RFEM - R FEMUR XRAY REASON: RIGHT FEMUR PAIN ORDER NUMBER(s): [id number], ACCESSION NUMBER(s): [id number] PATIENT NAME: CHRISTOPHER GRANADOS : 1995 GENDER: M LOCATION: [facility] ER DOS: 09/10/2024 INTERPRETING PROVIDER: Sindi Hall Examination: RFEM Clinical Indication: RIGHT FEMUR PAIN Comparison: None. Technique: Multiple views of the right femur. Findings: Comminuted fracture involving the proximal metaphyseal region of the right femur with intramedullary nail fixation. Satisfactory alignment of the fracture fragment. M ild soft tissue edema and hematoma surrounding the proximal metaphyseal region of the femur. Visualized portions of the knee and hip joint appear grossly unremarkable. No evidence of dislocation. No destructive bony pathology. Impression: Comminuted fracture involving the proximal metaphyseal region of the right femur with intramedullary nail fixation. Satisfactory alignment of the fracture fragment. Mild soft tissue edema and hematoma surrounding the proximal metaphyseal region of the femur. Visualized portions of the knee and hip joint appear grossly unremarkable. Electronically Signed 09/10/2024 02:47 Sindi Hall DICTATED BY: ARASH ERICKSON MD DICTATED DATE/TIME: 09/10/24 0247 SIGNED BY: ARASH ERICKSON MD SIGNED DATE/TIME: 09/10/24 0348 CC: Right lower DVT ultrasound reviewed Right femur x-ray reviewed Paul Smiths 10/325 mg p.o. ordered Zofran 4 mg p.o. ordered Advised on rest/strenuous activity, elevation and alternate ice on/off as needed for pain Patient neurovascularly intact and reported improvement in symptoms prior to discharge Crutches ordered, patient educated on proper use. Advised on continued use at all times/non-weight bearing right leg Previous charts reviewed Patient provided copy of x-ray imaging report Advised to f/u with orthopedics Dr. Huynh in 1-2 days with contact information provided Advised to follow up with PCP in 1-2 days Patient verbalized understanding and agreeable with current plan of care Advised to return to ER immediately if symptoms worsen Images Reviewed?: Images reviewed and evaluated by me Time of 1ST Reevaluation: 01:40 Reevaluation 1ST: N/A Time of 2ND Reevaluation: 03:40 Reevaluation 2ND: Improved Patient Education/Counseling: Diagnosis, Treatment, Prognosis, Need For Follow Up Family Education/Counseling: No Family Present Departure 1 Departure Time of Disposition: 03:42 Impression: Primary Impression: Postoperative pain of extremity Additional Impression: History of fracture of right hip Disposition: 01 HOME / SELF CARE / HOMELESS Condition: Stable e-Prescriptions Acetaminophen W/ Codeine (Tylenol W/Cod #3) 1 Tab Tb 1 TAB PO Q6HPRN, #10 TAB 0 Refills Prov: ABBE RODRIGUEZ 09/10/24 Discharged With: Significant Other Critical Care Note Critical Care Time?: No Stability Stability form required: No Heart Score Heart Score: Heart Score Response (Comments) Value History N/A 0 EKG N/A 0 Age N/A 0 Risk Factors N/A 0 Troponin N/A 0 Total 0 ABBE RODRIGUEZ Sep 10, 2024 01:45
--- NOTE | 2024-09-10 03:48 | DVH ---
[facility] RADIOLOGY REPORT PATIENT NAME: CHRISTOPHER GRANADOS : 1995 GENDER: M LOCATION: [facility] DOS: 09/10/2024 INTERPRETING PROVIDER: Sindi Hall Examination: RFEM Clinical Indication: RIGHT FEMUR PAIN Comparison: None. Technique: Multiple views of the right femur. Findings: Comminuted fracture involving the proximal metaphyseal region of the right femur with intramedullary nail fixation. Satisfactory alignment of the fracture fragment. Mild soft tissue edema and hematoma surrounding the proximal metaphyseal region of the femur. Visualized portions of the knee and hip joint appear grossly unremarkable. No evidence of dislocation. No destructive bony pathology. Impression: Comminuted fracture involving the proximal metaphyseal region of the right femur with intramedullary nail fixation. Satisfactory alignment of the fracture fragment. Mild soft tissue edema and hematoma surrounding the proximal metaphyseal region of the femur. Visualized portions of the knee and hip joint appear grossly unremarkable. Electronically Signed 09/10/2024 02:47 Sindi Hall MTDDamion
== END 2024-09-10 04:03 | disposition home or self-care (01) ==
LOC: ER 22:54
DX: G89.18 Other acute postprocedural pain (principal); M25.551 Pain in right hip; Z98.890 Other specified postprocedural states; Z88.0 Allergy status to penicillin; Z79.899 Other long term (current) drug therapy
CPT/HCPCS: 73552; 93971; 99284; Q0162